=== PATIENT | female | born 1945 | race Caucasian/White ===

== ENCOUNTER 2016-10-06 20:21 | Emergency (ER) | payer MEDICARE, OTHER ==
--- NOTE | 2016-10-06 21:13 | ER NURSING DOCUMENTATION ---
Nurse's Notes [facility] Name:Kaiden Freitas Age:71 yrs Sex:Female :1945 Arrival Date:10/06/2016 Time:20:21 Bed6 Private MD:Avni Orr Diagnosis:Distal Fibula Fracture-: Acute Left Presentation: 10/06 20:26 Presenting complaint: Patient states: Pt had a total of 6 beers this evening, pt was rh getting out of her vehicle and twisted the ankle. Pt sat on the ground for 10 or so minutes before she was helped into her apartment. Pt attempted to walk to bathroom but couldn't bear weight on the ankle. Transition of care: Home. 20:26 Acuity: LINDA 4 20:26 Method Of Arrival: EMS: 410 rh Triage Assessment: 20:29 General: Appears in no apparent distress, Behavior is cooperative. Pain: Complains of rh pain in left lateral ankle. Neuro: Level of Consciousness is awake, alert, obeys commands, Oriented to person, place, time, event. Cardiovascular: Capillary refill < 3 seconds. Respiratory: Airway is patent. Derm: Skin is intact, is healthy with good turgor, Skin is pink, warm & dry. Musculoskeletal: Circulation, motion, and sensation intact Swelling present in left lateral ankle and anterior aspect of left ankle. Historical: - Allergies: SEASONAL ALLERGIES; - Home Meds: 1. metoprolol tartrate oral 2. Pradaxa 150 mg oral cap 1 cap 2 times per day 3. atorvastatin 20 mg oral tab 1 tab once daily 4. levothyroxine 125 mcg oral cap 1 cap once daily 5. Vitamin D Oral 6. Vitamin C Oral - PMHx: TIA; Hypertension; HIGH CHOLESTEROL; THYROID PROBLEM; - PSHx: ANKLE SURGERY; - Tetanus: < 10 years. - Ebola Screening: : Patient negative for fever greater than or equal to 101.5 degrees Fahrenheit, and additional compatible Ebola Virus Disease symptoms. - Immunization history: Flu Vaccine < 1 year. - Social history: Smoking status: Patient states former smoker of tobacco. Screenin:31 Infectious Disease Risk None. Abuse screen: Denies threats or abuse. Denies injuries rh from another. Nutritional screening: No deficits noted. Assessment: 20:31 See Triage Assessment done by same RN. 20:51 Reassessment: High walking boot applied, patient is able to ambulate with walker and rh boot without troubles. . Vital Signs: 20:30 BP 136 / 77; Pulse 93; Resp 16; Temp 98.6(O); Pulse Ox 94% on R/A; Weight 79.38 kg; rh Height 5 ft. 6 in. (167.64 cm); Pain 2/10; 20:30 Body Mass Index 28.25 (79.38 kg, 167.64 cm) ED Course: 20:20 Notified ED Physician of patient's arrival and chief complaint. Dr. Garnica notified. rh 20:20 Maintain field IV. Site clean & dry. Gauge & site: 20G R AC. rh 20:22 Patient arrived in ED. em2 20:22 Avni Orr is Private Physician. em2 20:25 Norberto Garnica MD is Attending Physician. cd 20:26 Thao Madison is Primary Nurse. rh 20:27 Triage completed. rh 20:31 Port Xray Completed. ca 20:31 Valuables Remains with patient Patient has correct armband on for positive rh identification. Bed in low position. Call light in reach. Side rails up X 1. 20:31 Affected limb iced. Affected limb elevated. rh 20:55 Oscar Arce DO, Jaylon Felton MD is Referral Physician. cd 20:59 Walking boot applied. rh Administered Medications: No medications were administered Outcome: 20:56 Discharge ordered by . cd 21:11 Discharged to home via wheelchair, with family, PT loaned a walker from the [employer], pt filled out [facility] [employer] form. 21:11 Condition: stable 21:11 Discharge Assessment: Patient awake, alert and oriented x 3. No cognitive and/or functional deficits noted. Patient verbalized understanding of disposition instructions. 21:11 Discharge instructions given to patient, family, Instructed on discharge instructions, follow up and referral plans. [facility] Demonstrated understanding of instructions. 21:11 IV D/Piero 21:13 Patient left the ED. 10/07 11:30 Discharge F/U Call: Unable to reach: left voicemail: sj Signatures: Norberto Garnica MD MD cd Kevin-reg, Franny-reg em2 Allen Garnica de Thao Madison Alysia Campos
--- NOTE | 2016-10-06 21:13 | ER PHYSICIAN DOCUMENTATION ---
Physician Documentation [facility] Name:Kaiden Freitas Age:71 yrs Sex:Female :1945 Arrival Date:10/06/2016 Time:20:21 Bed6 Private MD:Avni Orr ED, Chris Disposition: 10/06/16 20:56 Discharged to Home/Self Care. Impression: Distal Fibula Fracture - : Acute Left. - Condition is Good. - Discharge Instructions: ANKLE FRACTURE (Distal Fibula), closed, WALKER USE, Ankle - WALKER BOOT. - Medical Reconciliation form form. - Follow up: Oscar Arce DO, Jaylon Felton MD; When: 2 - 3 days; Reason: Recheck today's complaints, Continuance of care. - Problem is new. - Symptoms have improved. - Notes: Ice packs and elevate for 2 - 3 days.. Tylenol for pain... Use walker at all times for stability to get around. Follow up with Dr. Oscar Arce or Dr. Jaylon Felton in 2 - 3 days... HPI: 10/06 20:22 This 71 yrs old Female presents to ER via EMS with complaints of Ankle Injury cd - LEFT. 20:22 The patient presents with an injury, swelling, tenderness. The complaints affect the cd left ankle. Onset: The symptom(s)/episode began/occurred acutely, just prior to arrival. Context: The problem was sustained outdoors, The mechanism of injury involved inversion of the affected ankle. getting into her car The patient can partially bear weight on the affected extremity. the patient is able to ambulate. Associated signs and symptoms: The patient has no apparent associated signs or symptoms. Historical: - Allergies: SEASONAL ALLERGIES; - Home Meds: 1. metoprolol tartrate oral 2. Pradaxa 150 mg oral cap 1 cap 2 times per day 3. atorvastatin 20 mg oral tab 1 tab once daily 4. levothyroxine 125 mcg oral cap 1 cap once daily 5. Vitamin D Oral 6. Vitamin C Oral - PMHx: TIA; Hypertension; HIGH CHOLESTEROL; THYROID PROBLEM; - PSHx: ANKLE SURGERY; - Tetanus: < 10 years. - Ebola Screening: : Patient negative for fever greater than or equal to 101.5 degrees Fahrenheit, and additional compatible Ebola Virus Disease symptoms. - Immunization history: Flu Vaccine < 1 year. - Social history: Smoking status: Patient states former smoker of tobacco. ROS: 20:30 Back: Negative for injury, pain or muscle spasms. cd Skin: Negative for injury, rash, itching and discoloration. 20:30 Neuro: Negative for headache, weakness, numbness, tingling, and seizure. cd 20:30 Constitutional: Negative for body aches, poor PO intake. 20:30 MS/extremity: Positive for injury or acute deformity, decreased range of motion, swelling, tenderness, of the left lateral ankle, Negative for paresthesias, tingling. 20:30 All other systems are negative. Exam: Head/Face: Normocephalic, atraumatic. Neck: Trachea midline, no thyromegaly or masses palpated, and no cervical lymphadenopathy. Supple, full range of motion without nuchal rigidity, or vertebral point tenderness. No Meningismus. Chest/axilla: Normal chest wall appearance and motion. Nontender with no deformity. No lesions are appreciated. Cardiovascular: Regular rate and rhythm with a normal S1 and S2. No gallops, murmurs, or rubs. Normal PMI, no JVD. No pulse deficits. Respiratory: Lungs have equal breath sounds bilaterally, clear to auscultation and percussion. No rales, rhonchi or wheezes noted. No increased work of breathing, no retractions or nasal flaring. Abdomen/GI: Soft, non-tender, with normal bowel sounds. No distension or tympany. No guarding or rebound. No evidence of tenderness throughout. Back: No spinal tenderness. No costovertebral tenderness. Full range of motion. Skin: Warm, dry with normal turgor. Normal color with no rashes, no lesions, and no evidence of cellulitis. 20:30 Neuro: Awake and alert, GCS 15, oriented to person, place, time, and situation. cd Cranial nerves II-XII grossly intact. Motor strength 5/5 in all extremities. Sensory grossly intact. Cerebellar exam normal. Normal gait. 20:30 Constitutional: The patient appears alert, awake, non-diaphoretic, non-toxic, well developed, well nourished. 20:30 Musculoskeletal/extremity: Extremities: grossly normal except: noted in the left lateral ankle: swelling, tenderness, ROM: intact in all extremities, Circulation is intact in all extremities. Sensation intact. Compartment Syndrome exam of affected extremity: is normal. Calcaneus exam normal. 20:30 Skin: Exam negative for acute changes. Vital Signs: 20:30 BP 136 / 77; Pulse 93; Resp 16; Temp 98.6(O); Pulse Ox 94% on R/A; Weight 79.38 kg; rh Height 5 ft. 6 in. (167.64 cm); Pain 2/10; 20:30 Body Mass Index 28.25 (79.38 kg, 167.64 cm) rh MDM: 20:25 Patient medically screened. cd 20:25 Differential diagnosis: fracture, sprain. cd 20:30 Data reviewed: and as a result, I will discharge patient. Data interpreted: Pulse cd oximetry: on room air is 94 %. Interpretation: normal. Counseling: I had a detailed discussion with the patient and/or guardian regarding: the historical points, exam findings, and any diagnostic results supporting the discharge/admit diagnosis, radiology results, the need for outpatient follow up, for a recheck, for a referral to a specialist, a orthopedic surgeon, to return to the emergency department if symptoms worsen or persist or if there are any questions or concerns that arise at home. Response to treatment: the patient's symptoms have markedly improved after treatment, and as a result, I will discharge patient, Patient was able to ambulate easily with the Walking Boot and Walker.... 20:55 Data reviewed: vital signs, nurses notes, EMS record, old medical records, radiologic cd studies, plain films, revealed a distal left fibular fracture with a normal mortise. 10/06 20:26 Order name: Ice Packs; Complete Time: 20: cd 10/06 20:26 Order name: NPO; Complete Time: 20: cd 10/06 20:26 Order name: Pulse Ox Continuous; Complete Time: : cd 10/06 20:42 Order name: Walking Boot; Complete Time: :57 cd 10/06 20:42 Order name: Road Test; Complete Time: 20:57 cd Dispensed Medications: No medications were administered Signatures: Norberto Garnica MD MD Thao Madison
--- NOTE | 2016-10-07 07:56 | RADIOLOGY REPORT ---
Three views of the left ankle demonstrate an oblique fracture of the distal fibula with 2 to 3 mm of posterolateral displacement. The tibia and talus are intact. The mortise is not widened. The visualized joints appear unremarkable. IMPRESSION: Mildly displaced eversion type oblique fracture of the left distal fibula. MTDD
== END 2016-10-06 21:13 | disposition home or self-care (01) ==
LOC: ER 20:21
DX: S82.232A Displaced oblique fracture of shaft of left tibia, initial encounter for closed fracture (principal); W18.40XA Slipping, tripping and stumbling without falling, unspecified, initial encounter; Y92.89 Other specified places as the place of occurrence of the external cause; Y93.01 Activity, walking, marching and hiking; I10 Essential (primary) hypertension; Z86.73 Personal history of transient ischemic attack (TIA), and cerebral infarction without residual deficits; Z79.01 Long term (current) use of anticoagulants; Z79.899 Other long term (current) drug therapy
CPT/HCPCS: 73610; 99283; A0425; A0429